=== PATIENT | male | born 1990 | race Caucasian/White ===

== ENCOUNTER → 2018-07-02 | Outpatient (CLI) | payer BC ==
--- NOTE | 2018-07-02 13:45 | REP ---
LEFT KNEE, FIVE VIEWS: Knee pain. There is no acute fracture or dislocation. The joint spaces are normal in appearance. Calcified densities are present posterior to the knee joint. This represents ligamentous or tendon calcification. IMPRESSION: There is no acute fracture or dislocation. Electronically Signed by Elvis Edge MD 07/02/2018 02:28 P
[2018-07-02 17:32] LABS: ALBUMIN 4.2 GM/DL (3.2-5.2); ALT/SGPT 39 U/L (12-78); BILIRUBIN,TOTAL 0.7 MG/DL (0.2-1.0); BLOOD UREA NITROGEN 15 MG/DL (7-18); CALCIUM LEVEL 9.4 MG/DL (8.5-10.1); CARBON DIOXIDE LEVEL 26 MEQ/L (21-32); CHLORIDE LEVEL 105 MEQ/L (98-107); CHOLESTEROL LEVEL 261 MG/DL (<200); CHOLESTEROL RISK RATIO 3.838 (<5); CREATININE FOR GFR 1.13 MG/DL (0.70-1.30); GLOMERULAR FILTRATION RATE > 60.0 (>60); GLUCOSE, FASTING 93 MG/DL (70-100); HDL CHOLESTEROL 68 MG/DL (>40); LDL CHOLESTEROL 168 MG/DL (<100); NON-HDL-C 193 MG/DL; POTASSIUM SERUM 4.5 MEQ/L (3.5-5.1); SODIUM LEVEL 138 MEQ/L (136-145); TOTAL PROTEIN 7.7 GM/DL (6.4-8.2); TRIGLYCERIDES LEVEL 123 MG/DL (<150)
== END ==
LOC: M WUC 10:45
PROVIDERS: ATTEND Nurse Practitioner Family
DX: E78.5 Hyperlipidemia, unspecified (principal); M25.562 Pain in left knee

== ENCOUNTER → 2019-03-07 | Outpatient (CLI) | payer BC ==
--- NOTE | 2019-03-07 13:57 | REP ---
Four views cervical spine: 03/07/2019. Indication: Neck pain. Comparison: None. Findings: There is slight reversal of the cervical lordosis. There is no acute fracture, subluxation or dislocation. The prevertebral and additional visualized soft tissues are unremarkable. The visualized lungs are clear. Impression: Cervical lordosis reversal, otherwise unremarkable study. Electronically Signed by Silverio Harvey DO 03/07/2019 01:48 P
== END ==
LOC: M WUC 12:26
PROVIDERS: ATTEND Nurse Practitioner Family
DX: M54.2 Cervicalgia (principal)

== ENCOUNTER → 2019-06-22 | Outpatient (CLI) | payer BC ==
--- NOTE | 2019-06-22 12:45 | REP ---
CERVICAL SPINE: Five views of the cervical spine are performed. There is no compression fracture identified. There is normal alignment. There is no prevertebral soft tissue swelling. Disc spaces appear well preserved. Oblique views appear unremarkable. IMPRESSION: Unremarkable cervical spine series. Electronically Signed by Lexa De La Cruz MD 06/26/2019 03:39 P
== END ==
LOC: M WUC 09:52
PROVIDERS: ATTEND Physician Assistant
DX: M54.2 Cervicalgia (principal)

== ENCOUNTER 2019-09-27 12:45 | Emergency (ER) | payer BC ==
[~2019-09-27] VITALS: Ht 180.3 cm; Wt 110.0 kg
[2019-09-27 13:29] LABS: BASO # 0.1 10^3/uL (0.0-0.2); EOS # 0.2 10^3/uL (0.0-0.5); EOS % 1.3 % (0.0-3.0); HEMATOCRIT 45.7 % (42.0-52.0); HEMOGLOBIN 15.9 g/dl (13.5-17.5); LYMPH # 4.8 10^3/uL (1.5-5.0); LYMPH % 33.2 % (24.0-44.0); MEAN CORPUSCULAR HEMOGLOBIN 32.2 pg (27.0-33.0); MEAN CORPUSCULAR HGB CONC 34.8 g/dl (32.0-36.5); MEAN CORPUSCULAR VOLUME 92.5 fl (80.0-96.0); MONO % 6.8 % (0.0-5.0); NEUTROPHILS # 8.2 10^3/uL (1.5-8.5); NEUTROPHILS % 56.4 % (36.0-66.0); PLATELET COUNT, AUTOMATED 481 10^3/uL (150-450); RED BLOOD COUNT 4.94 10^6/uL (4.30-6.10); WHITE BLOOD COUNT 14.6 10^3/uL (4.0-10.0)
[2019-09-27] MEDS ORDERED: KETOROLAC 30 MG/ML 1ML VIAL IV ONE (13:30)
[2019-09-27] MEDS ORDERED: ONDANSETRON 4MG/2ML VIAL IV ONE (13:30)
[2019-09-27] MEDS ORDERED: NS 1,000 ML IV ONE (13:30)
[2019-09-27 13:49] LABS: ALBUMIN 4.2 GM/DL (3.2-5.2); BILIRUBIN,DIRECT 0.2 MG/DL (0.0-0.2); BILIRUBIN,TOTAL 0.6 MG/DL (0.2-1.0); TOTAL PROTEIN 7.6 GM/DL (6.4-8.2)
[2019-09-27] MEDS ORDERED: ISOVUE-370 76% 100ML VIAL As Ordered ONE (14:26)
--- NOTE | 2019-09-27 15:29 | REP ---
REASON: Flank pain and renal colic. PRIORS: None. FINDINGS: KUB shows the intestinal gas pattern to be nonspecific. The organ silhouettes insofar as delineated are unremarkable. There is no evidence of free intraperitoneal air. IMPRESSION: Nonspecific. Electronically Signed by Adalberto Beal DO 09/27/2019 05:06 P
[2019-09-27 15:31] VITALS: BP 138/63
--- NOTE | 2019-09-27 15:50 | REP ---
RENAL ULTRASOUND: Real-time sonographic evaluation of the kidneys performed. The kidneys are normal in size and echotexture, right kidney measuring 11.4 x 5.1 x 5.4 cm and left kidney 11.3 x 5.2 x 6.6 cm. There is no hydronephrosis bilaterally. There is a possible 7 mm stone in the mid to lower right renal collecting system. There is a column of [place] in the upper left kidney. No other renal abnormalities are seen. Urinary bladder is not well distended and not well evaluated. Ureteral jets could not be visualized with Doppler color evaluation. IMPRESSION: No hydronephrosis. Possible 7 mm intrarenal calculus mid to lower right kidney. Electronically Signed by Lexa De La Cruz MD 10/02/2019 06:12 P
--- NOTE | 2019-09-27 16:07 | REP ---
CT ABDOMEN AND PELVIS WITH IV CONTRAST: TECHNIQUE: Axial contrast-enhanced images from the lung bases to the pubic symphysis using 100 mL Isovue-370 intravenous contrast material with multiplanar reformations. COMPARISON: 12/01/2015 Visualized lung bases demonstrate no infiltrate. The liver, spleen, adrenals, and pancreas are unremarkable. There is a punctate calcification in the right renal collecting system. No hydroureteronephrosis is seen bilaterally. There is no abdominal aortic aneurysm. There is no adenopathy. There is no free air or free fluid. There is no bowel wall thickening. The appendix is normal. No pelvic mass is seen. Urinary bladder is mildly distended and grossly unremarkable. IMPRESSION: No evidence of appendicitis. Punctate intrarenal calculus right kidney. No hydroureteronephrosis. No other acute finding. Electronically Signed by Lexa De La Cruz MD 10/02/2019 06:14 P
== END 2019-09-27 15:34 | disposition home or self-care (01) ==
LOC: M ED 12:45
DX: N20.0 Calculus of kidney (principal)
CPT/HCPCS: 74018; 74177; 76775; 80047; 80076; 81001; 83690; 85025; 96361; 96374; 96375; 99284; J1885; J2405; Q9967

== ENCOUNTER → 2023-01-26 | Outpatient (CLI) | payer BC ==
[2023-01-26 16:48] LABS: BASO # 0.1 10^3/uL (0.0-0.2); BASO % 1.3 % (0.0-1.0); EOS # 0.3 10^3/uL (0.0-0.5); EOS % 2.3 % (0.0-3.0); HEMATOCRIT 44.6 % (42.0-52.0); HEMOGLOBIN 14.9 g/dl (13.5-17.5); LYMPH # 4.5 10^3/uL (1.5-5.0); LYMPH % 42.3 % (24.0-44.0); MEAN CORPUSCULAR HEMOGLOBIN 32.1 pg (27.0-33.0); MEAN CORPUSCULAR HGB CONC 33.4 g/dl (32.0-36.5); MEAN CORPUSCULAR VOLUME 96.1 fl (80.0-96.0); MONO # 0.8 10^3/uL (0.0-0.8); MONO % 7.5 % (2.0-8.0); NEUTROPHILS # 4.8 10^3/uL (1.5-8.5); NEUTROPHILS % 44.6 % (36.0-66.0); PLATELET COUNT, AUTOMATED 454 10^3/uL (150-450); RED BLOOD COUNT 4.64 10^6/uL (4.30-6.10); WHITE BLOOD COUNT 10.7 10^3/uL (4.0-10.0)
[2023-01-26 17:05] LABS: HEMOGLOBIN A1c 4.8 % (4.0-6.0)
[2023-01-26 17:21] LABS: ALKALINE PHOSPHATASE 59 U/L (46-116); ALT/SGPT 21 U/L (7.0-40); AST/SGOT 14 U/L (<34); BILIRUBIN,TOTAL 0.4 MG/DL (0.3-1.2); BLOOD UREA NITROGEN 17 MG/DL (9-23); CALCIUM LEVEL 9.6 MG/DL (8.5-10.1); CARBON DIOXIDE LEVEL 28 MMOL/L (20-31); CHLORIDE LEVEL 105 MMOL/L (98-107); CHOLESTEROL LEVEL 207 MG/DL (<200); CHOLESTEROL RISK RATIO 2.96 (<5); FREE T4 0.98 NG/DL (0.89-1.76); GLOMERULAR FILTRATION RATE > 60.0 (>60); GLUCOSE, FASTING 88 MG/DL (60-100); HDL CHOLESTEROL 69.8 MG/DL (>40); LDL CHOLESTEROL 121.2 MG/DL (<100); NON-HDL-C 137.2 MG/DL; POTASSIUM SERUM 4.4 MMOL/L (3.5-5.1); SODIUM LEVEL 139 MMOL/L (136-145); TRIGLYCERIDES LEVEL 80 MG/DL (<150)
== END ==
LOC: M WUC 10:58
PROVIDERS: ATTEND Registered Nurse
DX: Z00.00 Encounter for general adult medical examination without abnormal findings (principal)

== ENCOUNTER 2023-03-07 07:06 | Day surgery (SDC) | payer BC ==
[~2023-03-07] VITALS: Ht 180.3 cm; Wt 103.4 kg
[~2023-03-07 07:06] MED LIST: ceFAZolin SOD 2 GM in IV 1 EA IV ONE
[2023-03-07] MEDS ORDERED: BACITRACIN OINTMENT 30GM TUBE As Ordered ONE ×2 (08:20→09:22)
[2023-03-07] MEDS ORDERED: MIDAZOLAM INJ 2MG/2ML VIAL As Ordered ONE (08:47)
[2023-03-07] MEDS ORDERED: dexmedeTOMIDine (4MCG/ML)200MCG/50ML BTL (PRECEDEX) As Ordered ONE (08:47)
[2023-03-07] MEDS ORDERED: LIDOCAINE 2% 100MG/5ML SDV (FOR ANES.) As Ordered ONE (08:47)
[2023-03-07] MEDS ORDERED: fentaNYL 100 MCG/2 ML INJECTION As Ordered ONE (08:47)
[2023-03-07] MEDS ORDERED: ONDANSETRON 4MG 2ML VIAL As Ordered ONE (08:47)
[2023-03-07] MEDS ORDERED: propofoL 200 MG/20 ML VIAL As Ordered ONE (08:47)
[2023-03-07] MEDS ORDERED: ACETAMINOPHEN 1000MG 100ML IV BAG As Ordered ONE (08:54)
[2023-03-07] MEDS ORDERED: KETOROLAC 60MG 2ML VIAL As Ordered ONE (09:12)
[2023-03-07] MEDS ORDERED: PERC5TAB12 PO (10:03)
[2023-03-07 10:30] VITALS: BP 165/95; TEMP 97.9; O2SAT 94
== END 2023-03-07 10:51 | disposition home or self-care (01) ==
LOC: M SDC 07:06
PROVIDERS: ATTEND Orthopaedic Surgery Hand Surgery
DX: M67.431 Ganglion, right wrist (principal); Z87.891 Personal history of nicotine dependence
CPT/HCPCS: 25111; 88305; J0131; J0665; J1100; J1885; J2250; J2405; J3010

== ENCOUNTER → 2024-02-22 | Outpatient (CLI) | payer BC ==
[~2024-02-22] MED LIST changes: +PERC5TAB12 PO; -ceFAZolin SOD 2 GM in IV 1 EA IV ONE
[2024-02-22 18:07] LABS: ALBUMIN 3.9 G/DL (3.2-5.2); ALKALINE PHOSPHATASE 61 U/L (40-129); ALT/SGPT 29 U/L (7.0-40); AST/SGOT 16 U/L (<34); BILIRUBIN,TOTAL 0.4 MG/DL (0.3-1.2); BLOOD UREA NITROGEN 14 MG/DL (9-23); CALCIUM LEVEL 10.4 MG/DL (8.5-10.1); CARBON DIOXIDE LEVEL 28 MMOL/L (20-31); CHLORIDE LEVEL 104 MMOL/L (98-107); CHOLESTEROL LEVEL 254 MG/DL (<200); CHOLESTEROL RISK RATIO 3.83 (<5); CREATININE FOR GFR 1.09 MG/DL (0.70-1.30); GLOMERULAR FILTRATION RATE > 60.0 (>60); GLUCOSE, FASTING 87 MG/DL (60-100); HDL CHOLESTEROL 66.2 MG/DL (>40); LDL CHOLESTEROL 169.8 MG/DL (<100); NON-HDL-C 187.8 MG/DL; POTASSIUM SERUM 4.3 MMOL/L (3.5-5.1); SODIUM LEVEL 138 MMOL/L (136-145); TOTAL PROTEIN 7.4 G/DL (5.7-8.2); TRIGLYCERIDES LEVEL 90 MG/DL (<150)
== END ==
LOC: M WUC 11:41
PROVIDERS: ATTEND Nurse Practitioner Family
DX: Z00.00 Encounter for general adult medical examination without abnormal findings (principal)

== ENCOUNTER → 2025-01-31 | Outpatient (CLI) | payer BC ==
[2025-01-31 18:56] LABS: BASO # 0.1 10^3/uL (0.0-0.2); BASO % 1.2 % (0.0-1.0); EOS # 0.2 10^3/uL (0.0-0.5); EOS % 1.6 % (0.0-3.0); LYMPH # 4.6 10^3/uL (1.5-5.0); LYMPH % 41.4 % (24.0-44.0); MONO # 0.8 10^3/uL (0.0-0.8); MONO % 6.7 % (2.0-8.0); NEUTROPHILS # 5.4 10^3/uL (1.5-8.5); NEUTROPHILS % 48.1 % (36.0-66.0); PLATELET COUNT, AUTOMATED 471 10^3/uL (150-450)
[2025-01-31 19:34] LABS: ALT/SGPT 29.0 U/L (7.0-40); AST/SGOT 22.0 U/L (<34); CALCIUM LEVEL 10.1 MG/DL (8.5-10.1); CARBON DIOXIDE LEVEL 26.0 MMOL/L (20-31); CHLORIDE LEVEL 104.0 MMOL/L (98-107); CHOLESTEROL LEVEL 257.0 MG/DL (<200); CHOLESTEROL RISK RATIO 4.36 (<5); CREATININE FOR GFR 1.14 MG/DL (0.70-1.30); GLOMERULAR FILTRATION RATE 85.5 (>60); LDL CHOLESTEROL 181.7 MG/DL (<100); NON-HDL-C 198.1 MG/DL; POTASSIUM SERUM 4.2 MMOL/L (3.5-5.1); SODIUM LEVEL 141.0 MMOL/L (136-145); TRIGLYCERIDES LEVEL 82.0 MG/DL (<150)
== END ==
LOC: M WUC 13:31
PROVIDERS: ATTEND Nurse Practitioner Family
DX: Z00.00 Encounter for general adult medical examination without abnormal findings (principal)